=== PATIENT | male | born 1990 | race Caucasian/White ===

== ENCOUNTER 2020-06-07 12:48 | Emergency (ER) | payer SELFPAY ==
[~2020-06-07] VITALS: Ht 157.5 cm; Wt 63.3 kg
[2020-06-07] MEDS: IV NORMAL SALINE 1,000ML 1,000 ML IV ONE (13:28)
[2020-06-07 13:42] LABS: BASO % 1 % (0-3); EOS # 0.1 x10^3/uL (0.0-0.7); EOS % 1 % (0-3); HEMATOCRIT 45.8 % (39.0-53.0); HEMOGLOBIN 15.2 g/dL (13.0-17.5); LYMPH # 0.7 x10^3/uL (1.0-4.8); LYMPH % 9 % (24-48); MEAN CORPUSCULAR HEMOGLOBIN 31 pg (25-35); MEAN CORPUSCULAR HGB CONC 33 g/dL (31-37); MEAN CORPUSCULAR VOLUME 93 fL (79-100); MONO # 1.1 x10^3/uL (0.0-1.1); MONO % 14 % (0-9); NEUT # 5.7 x10^3uL (1.8-7.7); NEUT % 76 % (31-73); PLATELET COUNT 231 x10^3/uL (140-400); RED BLOOD COUNT 4.93 x10^6/uL (4.30-5.70); RED CELL DISTRIBUTION WIDTH 13.5 % (11.5-14.5); WHITE BLOOD COUNT 7.5 x10^3/uL (4.0-11.0)
[2020-06-07 13:50] VITALS: BP 115/73
[2020-06-07 13:52] LABS: CALCIUM 8.6 mg/dL (8.5-10.1); GFR 87.2; POTASSIUM 4.4 mmol/L (3.5-5.1)
--- NOTE | 2020-06-07 14:04 | RAD ---
EXAM: CT HEAD WITHOUT CONTRAST. HISTORY: Syncope, fall. TECHNIQUE: Computed tomography of the head was performed without intravenous contrast. One or more of the following individualized dose reduction techniques were utilized for this examination: 1. Automated exposure control. 2. Adjustment of the mA and/or kV according to patient size. 3. Use of iterative reconstruction technique. COMPARISON: None. FINDINGS: There is no intracranial hemorrhage. Bacon-white differentiation is preserved. The ventricles are normal in size and position. The visualized paranasal sinuses appear clear. The orbits are unremarkable. The temporal bones are unremarkable. The calvarium reveals no suspicious lesions. IMPRESSION: 1. No acute intracranial findings. Electronically signed by: Keith Taveras MD (06/07/2020 2:01 PM) [facility]
[2020-06-07 14:08] LABS: ALBUMIN 3.7 g/dL (3.4-5.0); ALBUMIN/GLOBULIN RATIO 1.1 (1.0-1.7); MAGNESIUM 1.7 mg/dL (1.8-2.4); TOTAL BILIRUBIN 0.6 mg/dL (0.2-1.0); TOTAL PROTEIN 7.1 g/dL (6.4-8.2)
--- NOTE | 2020-06-07 14:14 | PHYS DOC ---
General Adult EDM: Chief Complaint: DIZZY/LIGHT HEADED HPI: HPI: Patient is a 29 year old male who presents with after passing out this morning. Patient hit his head but denies neuro and any other symptoms. Denies N/V. Reports slight ringing in his ears. Reports smoking blunt this morning. Review of Systems: Review of Systems: Constitutional: Denies fever or chills Eyes: Denies redness or eye pain HENT: Denies nasal congestion or sore throat Respiratory: Denies cough or shortness of breath Cardiovascular: Denies chest pain or palpitations GI: Denies abdominal pain, nausea, or vomiting : Denies dysuria or hematuria Musculoskeletal: Denies back pain or joint pain Integument: Denies rash or skin lesions Neurologic: Denies headache, focal weakness or sensory changes Complete systems were reviewed and found to be within normal limits, except as documented in this note. Current Medications: Current Meds: Current Medications Medications (Trade) Dose Ordered Sig/Reagan Start Time Stop Time Status Last Admin Dose Admin Sodium Chloride 1,000 ml @ 1,000 mls/hr 1X ONCE 06/07/20 13:30 06/07/20 14:29 06/07/20 13:28 1,000 MLS/HR Allergies: Allergies: Allergies Coded Allergies Type Severity Reaction Last Updated Verified No Known Drug Allergies 06/07/20 No Physical Exam: PE: Constitutional: Well developed, well nourished, no acute distress, non-toxic appearance HENT: Normocephalic, atraumatic Eyes: Conjunctiva normal, no discharge Neck: Normal range of motion, no tenderness, supple Lungs & Thorax: No respiratory distress, equal chest rise and fall Abdomen: Soft, no tenderness Skin: Warm, dry, no erythema, no rash Back: No tenderness, no CVA tenderness Extremities: No tenderness, ROM intact, no edema Neurologic: Alert and oriented X 3, normal motor function, normal sensory function, no focal deficits noted Psychologic: Affect normal, judgment normal Current Patient Data: Labs: Laboratory Tests Test 06/07/20 13:30 White Blood Count 7.5 x10^3/uL (4.0-11.0) Red Blood Count 4.93 x10^6/uL (4.30-5.70) Hemoglobin 15.2 g/dL (13.0-17.5) Hematocrit 45.8 % (39.0-53.0) Mean Corpuscular Volume 93 fL (79-100) Mean Corpuscular Hemoglobin 31 pg (25-35) Mean Corpuscular Hemoglobin Concent 33 g/dL (31-37) Red Cell Distribution Width 13.5 % (11.5-14.5) Platelet Count 231 x10^3/uL (140-400) Neutrophils (%) (Auto) 76 % (31-73) H Lymphocytes (%) (Auto) 9 % (24-48) L Monocytes (%) (Auto) 14 % (0-9) H Eosinophils (%) (Auto) 1 % (0-3) Basophils (%) (Auto) 1 % (0-3) Neutrophils # (Auto) 5.7 x10^3uL (1.8-7.7) Lymphocytes # (Auto) 0.7 x10^3/uL (1.0-4.8) L Monocytes # (Auto) 1.1 x10^3/uL (0.0-1.1) Eosinophils # (Auto) 0.1 x10^3/uL (0.0-0.7) Basophils # (Auto) 0.0 x10^3/uL (0.0-0.2) Sodium Level 133 mmol/L (136-145) L Potassium Level 4.4 mmol/L (3.5-5.1) Chloride Level 100 mmol/L (98-107) Carbon Dioxide Level 29 mmol/L (21-32) Anion Gap 4 (6-14) L Blood Urea Nitrogen 12 mg/dL (8-26) Creatinine 1.0 mg/dL (0.7-1.3) Estimated GFR (Cockcroft-Gault) 87.2 BUN/Creatinine Ratio 12 (6-20) Glucose Level 82 mg/dL (70-99) Calcium Level 8.6 mg/dL (8.5-10.1) Magnesium Level Pending Total Bilirubin Pending Aspartate Amino Transferase (AST) Pending Alanine Aminotransferase (ALT) Pending Alkaline Phosphatase Pending Creatine Kinase Pending Creatine Kinase MB (Mass) Pending Creatine Kinase MB Relative Index Pending Troponin I Quantitative < 0.017 ng/mL (0-0.055) Total Protein Pending Albumin Pending Albumin/Globulin Ratio Pending Ethyl Alcohol Level < 10 mg/dL (0-10) EKG: EKG: @1341 sinus rhythm, no ST segment elevation, QRS 84 ms, QT/QTc 322/383 ms. Radiology/Procedures: Radiology/Procedures: PROCEDURE: CT HEAD WO CONTRAST EXAM: CT HEAD WITHOUT CONTRAST. HISTORY: Syncope, fall. TECHNIQUE: Computed tomography of the head was performed without intravenous contrast. One or more of the following individualized dose reduction techniques were utilized for this examination: 1. Automated exposure control. 2. Adjustment of the mA and/or kV according to patient size. 3. Use of iterative reconstruction technique. COMPARISON: None. FINDINGS: There is no intracranial hemorrhage. Bacon-white differentiation is preserved. The ventricles are normal in size and position. The visualized paranasal sinuses appear clear. The orbits are unremarkable. The temporal bones are unremarkable. The calvarium reveals no suspicious lesions. IMPRESSION: 1. No acute intracranial findings. Electronically signed by: Keith Taveras MD (06/07/2020 2:01 PM) [facility] Course & Med Decision Making: Course & Med Decision Making Patient is a 29 year old male who presents with after passing out this morning. Patient hit his head but denies neuro and any other symptoms. Denies N/V. Fluids provided. Dragon Disclaimer: [employer] Disclaimer: This electronic medical record was generated, in whole or in part, using a voice recognition dictation system. Departure Departure: Impression: Primary Impression: Syncope Qualified Codes: R55 - Syncope and collapse Disposition: 01 DC HOME SELF CARE/HOMELESS Condition: IMPROVED Referrals: PCP,NO (PCP) Patient Instructions: Syncope, [id number] Additional Instructions: Increase fluid hydration. Take over the counter Tylenol and/or Ibuprofen for p ain or discomfort. ZACHARY JAIME DO Jun 07, 2020 14:14
--- NOTE | 2020-06-07 16:37 | EKG ---
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
== END 2020-06-07 15:00 | disposition home or self-care (01) ==
LOC: ER 12:48
DX: R55 Syncope and collapse (principal); R51.9 Headache, unspecified; H93.13 Tinnitus, bilateral; Z87.891 Personal history of nicotine dependence
CPT/HCPCS: 36415; 70450; 80053; 82553; 83735; 84484; 85025; 93005; 96360; 99285; G0480; J7030

== ENCOUNTER 2020-09-25 12:16 | Emergency (ER) | payer SELFPAY ==
[~2020-09-25] VITALS: Ht 157.5 cm; Wt 63.3 kg
[2020-09-25 12:21] VITALS: BP 112/70
--- NOTE | 2020-09-25 12:56 | RAD ---
XR FINGER(S)_LEFT 2+VIEWS_RT History: Reason: INJURY / Spl. Instructions: / History: Comparison: None. Technique: AP view left hand with 2 coned-down views of the left thumb. Findings: There is no fracture identified, however the dorsal cortex of the thumb proximal phalanx mid diaphysi s appears irregularly thickened adjacent to soft tissue defect. Joint spaces are preserved. No radiopaque foreign body is identified in the thumb, however there is a retained BB projecting at t he base of the third metacarpal. Impression: 1. Irregular thinning of the thumb proximal phalanx outer volar cortex adjacent to soft tissue irreg ularity may represent sequela of recent trauma. No fracture identified. Electronically signed by: Robson Cooper MD (09/25/2020 12:53 PM) [facility]
[2020-09-25] MEDS ORDERED: CEPHALEXIN 250 MG CAPSULE PO ONE (13:15)
--- NOTE | 2020-09-25 13:23 | PHYS DOC ---
Past History Past Medical History: No Pertinent History Past Surgical History: No Surgical History Smoking: Cigarettes Alcohol Use: Occasionally Drug Use: Marijuana General Adult EDM: Chief Complaint: LACERATION/AVULSION HPI: HPI: Patient is a 29-year-old male who presented to ER for evaluation of left thumb injury. Patient was using a skill saw to cut a piece of work, it kicked back and landed on his left thumb on the extensor surface, the skin and the extensor tendon, patient cannot extend his left thumb. He had a tetanus shot last year. The accident just happened about 45 minutes ago. Review of Systems: Review of Systems: Constitutional: Denies fever or chills Eyes: Denies change in visual acuity HENT: Denies nasal congestion or sore throat Respiratory: Denies cough or shortness of breath Cardiovascular: Denies chest pain or edema GI: Denies abdominal pain, nausea, vomiting, bloody stools or diarrhea : Denies dysuria Musculoskeletal: positive for left thumb injury Integument: Denies rash Neurologic: Denies headache, focal weakness or sensory changes Endocrine: Denies polyuria or polydipsia Lymphatic: Denies swollen glands Psychiatric: Denies depression or anxiety Current Medications: Current Meds: Current Medications Medications (Trade) Dose Ordered Sig/Reagan Start Time Stop Time Status Last Admin Dose Admin Cephalexin HCl (Keflex) 500 mg 1X ONCE 09/25/20 13:15 09/25/20 13:16 DC Allergies: Allergies: Allergies Coded Allergies Type Severity Reaction Last Updated Verified No Known Drug Allergies 09/25/20 No Physical Exam: PE: Constitutional: Well developed, well nourished, no acute distress, non-toxic appearance. [] HENT: Normocephalic, atraumatic, bilateral external ears normal, oropharynx moist, no oral exudates, nose normal. [] Eyes: PERRLA, EOMI, conjunctiva normal, no discharge. [] Neck: Normal range of motion, no tenderness, supple, no stridor. [] Cardiovascular:Heart rate regular rhythm, no murmur [] Lungs & Thorax: Bilateral breath sounds clear to auscultation [] Abdomen: Bowel sounds normal, soft, no tenderness, no masses, no pulsatile masses. [] Skin: Warm, dry, no erythema, no rash. [] Back: No tenderness, no CVA tenderness. [] Extremities: left thumb in a flexed position with 2.5 cm laceration on the exten sor surface at the proximal phalanx of left thumb with tendon laceration, patient can flex but not able to extend his left thumb . Neurologic: Alert and oriented X 3, normal motor function, normal sensory function, no focal deficits noted. [] Psychologic: Affect normal, judgement normal, mood normal. DENIED SUICIDAL IDEATION OR HOMICIDAL IDEATION. Current Patient Data: Vital Signs: Vital Signs Date Time Temp Pulse Resp B/P (MAP) Pulse Ox O2 Delivery O2 Flow Rate FiO2 09/25/20 12:21 97.3 81 16 112/70 (84) 100 Room Air EKG: EKG: [] Radiology/Procedures: Radiology/Procedures: [address] [address] IMAGING REPORT Signed PATIENT: HARVEY PEARCE WACCOUNT: [id number] : 1990 LOCATION: ER AGE: 29 SEX: M EXAM STATUS: REG ER ORD. PHYSICIAN: SARA VALERO DO REASON: INJURY PROCEDURE: FINGER(S) LEFT XR FINGER(S)_LEFT 2+VIEWS_RT History: Reason: INJURY / Spl. Instructions: / History: Comparison: None. Technique: AP view left hand with 2 coned-down views of the left thumb. Findings: There is no fracture identified, however the dorsal cortex of the thumb proximal phalanx mid diaphysis appears irregularly thickened adjacent to soft tissue defect. Joint spaces are preserved. No radiopaque foreign body is identified in the thumb, however there is a retained BB projecting at the base of the third metacarpal. Impression: 1. Irregular thinning of the thumb proximal phalanx outer volar cortex adjacent to soft tissue irregularity may represent sequela of recent trauma. No fracture identified. Electronically signed by: Robson Ash MD (09/25/2020 12:53 PM) [facility] DICTATED AND SIGNED BY: ROBSON ASH MD DATE: 09/25/20 1247 CC: PCP,NO; SARA VALERO DO ~MTH0 0 Laceration Procedure: Location: LEFT THUMB, EXTENSOR SURFACE AT THE PROXIMAL PHALANX Anesthesia: 8 ML OF .5% MARCAINE. total lenght of laceration: 2.5 CM Number of sutures:4 Suture Material: 3-0-NYLON. Technique:SIMPLE INTERRUPTED METHOD Patient tolerated procedure well. The wound was dressed with: NONSTICK GAUZE, STABILIZED WITH ALUMINUM FINGER SPLINT. Heart Score: C/O Chest Pain: N/A Risk Factors: Risk Factors: DM, Current or recent (<one month) smoker, HTN, HLP, family history of CAD, obesity. Risk Scores: Score 0 - 3: 2.5% MACE over next 6 weeks - Discharge Home Score 4 - 6: 20.3% MACE over next 6 weeks - Admit for Clinical Observation Score 7 - 10: 72.7% MACE over next 6 weeks - Early Invasive Strategies Course & Med Decision Making: Course & Med Decision Making Pertinent Labs and Imaging studies reviewed. (See chart for details) Patient is a 29-year-old male who sustained a laceration of his left thumb with complete laceration of the extensor tendon. Patient cannot extend his left thumb. The wound was cleaned with betadine and saline. His tetanus was up to date. The laceration of the skin is 2.5 cm. The skin was sutured with 4 sutures, 3-0-nylon, single interrupted method. The tendon laceration was not repaired. There is no ORTHOPEDIC, HAND SURGERY AVAILABLE AT this hospital, contacted [facility] TRANSFER LINE AT [phone] TO DISCUSS CASE WITH A HAND SURGEON THERE, DR. CARLOS MEZA. DR. MEZA said patient can go home from the ER today. He will arrange to take him to the OPERATING ROOM TOMORROW MORNING TO REPAIR THE TENDON LACERATION. He provided his nurse, Dyana, phone number [phone] so the transfer center Triage nurse can call to arrange for the time, patient's grandmother phone [phone] was given to the Transfer Center Triage nurse so they can call patient later to arrange for time. Ananth Disclaimer: [employer] Disclaimer: This electronic medical record was generated, in whole or in part, using a voice recognition dictation system. Departure Departure: Impression: Primary Impression: Laceration of left thumb with tendon involvement Referrals: PCP,NO (PCP) Please call [facility] for follow up with the hand surgeon, Dr. Carlos Meza TOMORROW MORNING FOR DEFINITIVE TREATMENT. The phone number is [phone]. Patient Instructions: Tendon Injury Scripts Cephalexin (CEPHALEXIN) 500 Mg Tablet 1 TAB PO QID for laceration for 7 Days, #28 TAB Prov: SARA VALERO DO 09/25/20 SARA VALERO DO Sep 25, 2020 13:23
[2020-09-25] MEDS ORDERED: CEPH500T PO (13:42)
== END 2020-09-25 13:45 | disposition home or self-care (01) ==
LOC: ER 12:16 → EEVIPCON 12:16 → ER 13:45
DX: S61.012A Laceration without foreign body of left thumb without damage to nail, initial encounter (principal); F17.210 Nicotine dependence, cigarettes, uncomplicated; F12.90 Cannabis use, unspecified, uncomplicated; W26.8XXA Contact with other sharp object(s), not elsewhere classified, initial encounter; Y93.89 Activity, other specified; Y92.89 Other specified places as the place of occurrence of the external cause; Y99.0 Civilian activity done for income or pay
CPT/HCPCS: 12001; 73140; 99283